=== PATIENT | female | born 1950 | race Caucasian/White ===

== ENCOUNTER 2018-11-09 10:51 | Inpatient (IN) | payer OTHER ==
[~2018-11-09] VITALS: Ht 160 cm; Wt 66.8 kg
[~2018-11-09 10:51] MED LIST: BEN25 PO; COL100 PO; IND10 PO; L20 PO; LAC30L PO; MAG PO; METHOCARBAMOL500 MG PO; PROT40I IV; THERAGRAN-M1 TA4 PO; THI100 PO; XIFAXAN550 M1 PO; ZOFI IV
[2018-11-09 10:52] VITALS: Ht 160 cm; Wt 66.8 kg
--- NOTE | 2018-11-09 11:11 | NUR ---
PT CAME TO THE ED TODAY WITH CO RASH TO R SIDE OF NECK AND HEADACHE X 4 DAYS. PT STATES PAIN STARTED THE SAME DAY. PER DR CHEUNG RASH IS SHINGLES. PT HAS HX OF STROKE IN 2009 WITH WEAKNESS TO R SIDE. PT STATES SHE USUALLY AMBULATES WITH WALKER. AT THIS TIME PT IS AWAKE AND ALERT. BREATHING EVEN AND UNLABORED. KAY AT BEDSIDE. WILL CONTINUE TO MONITOR.
[2018-11-09 11:42] LABS: BASOPHIL % 0.3 % (0-2); PLATELET COUNT 324 x10^3mcL (130-400); RED CELL DISTRIBUTION WIDTH 15.9 % (11.5-14.5)
[2018-11-09 11:47] LABS: microscopic required? NO
[2018-11-09 11:54] LABS: urine erythrocyte NEGATIVE (NEGATIVE)
[2018-11-09] MEDS ORDERED: VITD PO (12:09)
[2018-11-09] MEDS ORDERED: CAG500 PO (12:11)
[2018-11-09] MEDS ORDERED: MECLIZINE HYDRO25 M1 PO (12:12)
[2018-11-09] MEDS ORDERED: DAILY VITE1 TA2 PO (12:12)
[2018-11-09] MEDS ORDERED: FLUDROCORTISON0.1 MG PO (12:13)
[2018-11-09] MEDS ORDERED: DONEPEZIL HYDRO10 M2 PO (12:13)
[2018-11-09] MEDS ORDERED: NIFEDIPINE60 MG PO (12:14)
[2018-11-09] MEDS ORDERED: TOPROL XL25 MG PO (12:14)
[2018-11-09] MEDS ORDERED: CULTURELLE1 EACH PO (12:14)
[2018-11-09] MEDS ORDERED: DITROPAN XL5 MG PO (12:14)
[2018-11-09] MEDS ORDERED: PROTONIX40 MG PO (12:15)
[2018-11-09] MEDS ORDERED: NOVI SQ (12:15)
[2018-11-09] MEDS ORDERED: FORTEO250 MCG/ML SC (12:15)
[2018-11-09] MEDS ORDERED: MIRAPEX0.25 MG PO (12:16)
[2018-11-09] MEDS ORDERED: SIROLIMUS1 MG PO (12:16)
[2018-11-09] MEDS ORDERED: PROGRAF1 MG PO (12:16)
[2018-11-09] MEDS ORDERED: TRAMADOL HCL50 MG PO (12:17)
[2018-11-09] MEDS ORDERED: FULL CIRCLE BIOT5 MG PO (12:17)
[2018-11-09] MEDS ORDERED: ASPIR 8181 MG PO (12:17)
[2018-11-09] MEDS ORDERED: LANTUS SOLOS100 U/M1 SQ (12:17)
[2018-11-09 12:20] LABS: CARBON DIOXIDE 25.3 mmol/L (21-32); CREATININE SERUM 1.9 mg/dL (0.6-1.0); POTASSIUM SERUM 5.2 mmol/L (3.5-5.1)
[2018-11-09 12:25] LABS: ALBUMIN 3.6 g/dL (3.4-5.0); BILIRUBIN TOTAL 0.2 mg/dL (0.20-1.00); TOTAL PROTEIN, SERUM 7.8 g/dL (6.4-8.2)
--- NOTE | 2018-11-09 13:00 | NUR ---
REPORT GIVEN TO LYNDSEY ON MS FOR FURTHER CARE OF PT
[2018-11-09 13:23] LABS: CHOLESTEROL/HDL RATIO 6.8
[2018-11-09 13:31] LABS: T3 TOTAL 1.16 ng/mL
[2018-11-09 13:33] LABS: FREE T4 1.09 ng/dL (0.76-1.46); FREE THYROXINE INDEX 3.5 ug/dL (1.4-4.5); T4(THYROXINE) 10.2 ug/dL (4.7-13.3)
--- NOTE | 2018-11-09 13:37 | NUR ---
RECEIVED PT FROM ED VIA [facility], CAME IN DUE TO WEAKNESS. AAOX4. DENIES HEADACHE/DIZZINESS. NO SOB NOTED, LUNG SOUNDS CTA. DENIES CHEST PAIN/PRESSURE, SK=[id number]. DENIES ABDOMINAL DISCOMFORT. BOWEL SOUNDS ACTIVE. VOIDS. IV SITE ON THE RFA GAUGE 22 PATENT AND INTACT. W/ DRESSING ON THE RIGHT SIDE OF THE NECK, PT STATED NO NEED TO REMOVE THE DRESSING FOR ASSESSMENT ER HAD TOOK PICTURES ALREADY. C/O 10/10 HEADACHE AND RIGHT NECK PAIN, WILL MEDICATE PATIENT ORDERED. PT'S AT BEDSIDE. SIDE RAILS UPX2. CALL LIGHT ON REACH. NEEDS ARE ATTENDED. WILL CONT TO MONITOR.
--- NOTE | 2018-11-09 13:57 | NUR ---
MEDICATED W/ MORPHINE 2MG IVP FOR C/O 10/10 HEAD AND RIGHT NECK PAIN. WILL CONT TO MONITOR
--- NOTE | 2018-11-09 14:00 | NUR ---
ENDORSED TO PRIMARY NURSE JULIET FOR CONTINUITY OF CARE
[2018-11-09 14:08] VITALS: BP 133/94
[2018-11-09 17:58] VITALS: BP 161/101
--- NOTE | 2018-11-09 18:33 | NUR ---
PT RESTING IN BED, AOX4, RESP E/U ON RA. C/O OF MILD NECK AND BACK PAIN, RATED 5/10 BUT TOLERABLE, NO REQUEST FOR PAIN MEDS AT THIS TIME. COMFOR MEASURES IMPLEMENTED. IV TO RFA W/ NO SIGNS OF INFILTRATION, IVF INFUSING WELL. AIRBORNE PRECAUTIONS MAINTAINED. BED IN LOWEST POSITION AND CALL LIGHT WITHIN REACH. WILL ENDORSE TO ONCOMING NURSE.
--- NOTE | 2018-11-09 19:30 | NUR ---
RECIEVED PT IN NO ACUTE DISTRESS. AOX4. MED SURG. BREATHING E/U. RAISED AND REDDENED RASH, SHINGLES, TO R SIDE OF NECK WITH DRESSING CDI. NO DRAINAGE NOTED. BOWEL SOUNDS ACTIVE X 4. C/O DIARRHEA. DENIES PAIN. IV TO RFA, PATENT, NO REDNESS/SWELLING. AIR PRECAUTIONS MAINTAINED. BED IN LOWEST POSITON, 2 SIDE RAILS UP, CALL LIGHT IN REACH. INSTRUCTED TO CALL FOR ASSISTANCE.
[2018-11-09 21:05] VITALS: BP 175/111
--- NOTE | 2018-11-10 02:00 | NUR ---
RESTING IN BED WITH EYES CLOSED. BREATHING E/U. NO ACUTE DISTRESS NOTED. WILL CONTINUE TO MONITOR.
[2018-11-10 05:51] VITALS: BP 134/72
[2018-11-10 06:13] LABS: BASOPHIL % 0.1 % (0-2); PLATELET COUNT 317 x10^3mcL (130-400)
[2018-11-10 06:23] LABS: CREATININE SERUM 1.4 mg/dL (0.6-1.0); MAGNESIUM 1.8 mg/dL (1.8-2.4); POTASSIUM SERUM 5.2 mmol/L (3.5-5.1)
--- NOTE | 2018-11-10 06:30 | NUR ---
MEDICATED WITH DILAUDID IVP PER EMAR FOR 10/05 R NECK/HEAD PAIN WITH GOOD EFFECT. NO ACUTE DISTRESS NOTED. NO ACUTE CHANGES. WILL ENDORSE TO ONCOMING RN
[2018-11-10 06:45] LABS: RED CELL DISTRIBUTION WIDTH 15.9 % (11.5-14.5)
--- NOTE | 2018-11-10 07:32 | NUR ---
AWAKE, ALERT AND ORIENTED. NO RESP. DISTRESS. NO C/O PAIN OR DISCOMFORT AT THIS TIME. IVD INFUSING WELL AND SITE CLEAR. CALL LIGHT WITHIN REACH. WILL CONTINUE WITH PLAN OF CARE.
[2018-11-10 09:13] VITALS: BP 174/80
--- NOTE | 2018-11-10 11:33 | NUR ---
PT C/O PAIN TO RT SIDE OF THE NECK 12/06. MEDICATED WITH DILAUDID IVP PER ORDER.
--- NOTE | 2018-11-10 14:30 | NUR ---
RESTING IN BED, NO DISTRESS. NO C/O PAIN AT THIS TIME.
[2018-11-10 17:52] VITALS: BP 119/76
--- NOTE | 2018-11-10 18:30 | NUR ---
REMAINS IN NO DISTRESS. AWAKE AND ALERT. NO C/O PAIN OR DISCOMFORT AT THIS TIME. NO CHANGES IN VS. IVF INFUSING WELL AND SITE CLEAR. CALL LIGHT WITHIN REACH. WILL BE ENDORSED TO INCOMING SHIFT.
--- NOTE | 2018-11-10 18:58 | NUR ---
C/O HEADACHE 01/05. MEDICATED WITH DILAUDID PER ORDER.WILL BE ENDORSED TO INCOMING SHIFT.
--- NOTE | 2018-11-10 19:30 | NUR ---
RECIEVED PT IN NO ACUTE DISTRESS. AOX4. MED SURG. BREATHING E/U. RAISED AND REDDENED BLISTERS, SHINGLES, TO R SIDE OF NECK WITH DRESSING CDI. NO DRAINAGE NOTE. DENIES PAIN. IV TO R HAND, PATENT, NO REDNESS/SWELLING. AIR PRECAUTIONS MAINTAINED. BED IN LOWEST POSITON, 2 SIDE RAILS UP, CALL LIGHT IN REACH. INSTRUCTED TO CALL FOR ASSISTANCE.
[2018-11-10 20:02] VITALS: BP 140/69
--- NOTE | 2018-11-11 01:05 | NUR ---
RESTING IN BED WITH EYES CLOSED. BREATHING E/U. NO ACUTE DISTRESS NOTED. WILL CONTINUE TO MONITOR.
[2018-11-11 06:13] VITALS: BP 155/78
[2018-11-11 06:39] LABS: BASOPHIL % 0.7 % (0-2); PLATELET COUNT 287 x10^3mcL (130-400)
[2018-11-11 06:48] LABS: RED CELL DISTRIBUTION WIDTH 16.3 % (11.5-14.5)
--- NOTE | 2018-11-11 06:48 | NUR ---
NO ACUTE DISTRESS NOTED. NO ACUTE CHANGES. WILL ENDORSE TO ONCOMING RN.
[2018-11-11 07:00] LABS: CALCIUM 8.2 mg/dL (8.5-10.1); CARBON DIOXIDE 21.3 mmol/L (21-32); CREATININE SERUM 1.1 mg/dL (0.6-1.0); MAGNESIUM 1.7 mg/dL (1.8-2.4); POTASSIUM SERUM 4.5 mmol/L (3.5-5.1)
[2018-11-11 08:45] VITALS: BP 145/77
--- NOTE | 2018-11-11 10:27 | NUR ---
AT 0705 - RECEIVED PATIENT FROM NIGHT NURSE. SLEEPING. RESPIRATIONS REGULAR. IV INFUSING NS AT 100 ML/HR. ON AIRBORNE ISOLATION FOR SHINGLES. AT 0805 - AWAKE, ALERT AND ORIENTED. C/O SEVERE PAIN AT SHINGLES SITE (R CERVICAL DERMATOME). MEDICATED WITH IV DILAUDID PER EMAR. AT 0850 - IV IN L HAND. INFILTRATED. IV CATHETER REMOVED INTACT. IV RESITED IN R WIST AND IV INFUSION OF NS RESUMED AT 100 ML/HR.
[2018-11-11] MEDS ORDERED: ACYCLOVIR400 MG IV (12:01)
[2018-11-11] MEDS ORDERED: ACYCLOVIR SODI500 MG IV (12:15)
[2018-11-11 12:57] VITALS: BP 145/77
--- NOTE | 2018-11-11 13:43 | NUR ---
RECEIVED ORDERS FOR PATIENT TO DISCHARGE TO [facility] ([facility]) FOR CONTINUATION OF IV ANTIBIOTICS. [facility] IS [facility]RANGING MEDICAL TRANSPORT FOR PATIENT. SPOKE WITH PATIENT, SHE IS AWARE OF THE PLAN. [facility] WITH PICK-UP TIME OF 1500.
--- NOTE | 2018-11-11 15:21 | NUR ---
AT 1430 - SHINGLES AREA PHOTO DOCUMENTED. COVERED WITH DRY DRESSING AND NETTING FOR COMFORT. IV SALINE LOCKED. PATIENT SIGNED TRANSFER ACKNOWLEDGEMENT FORM. PREPARED FOR DISCHARGE. AT 1450 - COPIES OF PRINTED DISCHARGE INSTRUCTIONS GIVEN AND EXPLAINED TO PATIENT. AT 1515 - REPORT GIVEN TO EMEKA AT [facility]. DISCHARGED TO [facility] WITH [facility] IN WHEELCHAIR. PATIENT WORE MASK AT TRANSFER TIME.
--- NOTE | 2018-11-11 15:28 | NUR ---
PATIENT DISCHARGED WITH IV SALINE LOCK FOR CONTINUATION OF IV ACYCLOVIR.
== END 2018-11-11 15:13 | DRG 865 ==
LOC: ED 10:51 → MU 12:41
PROVIDERS: Emergency Medicine; ADMIT Internal Medicine
DX: B02.8 Zoster with other complications (principal); N17.0 Acute kidney failure with tubular necrosis; Z94.4 Liver transplant status; I10 Essential (primary) hypertension; E11.9 Type 2 diabetes mellitus without complications; Z86.73 Personal history of transient ischemic attack (TIA), and cerebral infarction without residual deficits; Z79.4 Long term (current) use of insulin; Z79.82 Long term (current) use of aspirin; Z79.899 Other long term (current) drug therapy
CPT/HCPCS: 82962; 84439; 97116-GP; G0378; J0133; J1170; J1200; J1815; J2270; J3010; J7030; J7507; Q0092

== ENCOUNTER 2018-11-24 10:09 | Inpatient (IN) | payer OTHER ==
[~2018-11-24] VITALS: Ht 160 cm; Wt 66.3 kg
[~2018-11-24 10:09] MED LIST changes: +ACYCLOVIR SODI500 MG IV; +ACYCLOVIR400 MG IV; +ASPIR 8181 MG PO; +CAG500 PO; +CULTURELLE1 EACH PO; +DAILY VITE1 TA2 PO; +DITROPAN XL5 MG PO; +DONEPEZIL HYDRO10 M2 PO; +FLUDROCORTISON0.1 MG PO; +FORTEO250 MCG/ML SC; +FULL CIRCLE BIOT5 MG PO; +LANTUS SOLOS100 U/M1 SQ; +MECLIZINE HYDRO25 M1 PO; +MIRAPEX0.25 MG PO; +NIFEDIPINE60 MG PO; +NOVI SQ; +PROGRAF1 MG PO; +PROTONIX40 MG PO; +SIROLIMUS1 MG PO; +TOPROL XL25 MG PO; +TRAMADOL HCL50 MG PO; +VITD PO
[2018-11-24 10:17] VITALS: Ht 160 cm; Wt 66.3 kg
--- NOTE | 2018-11-24 10:24 | NUR ---
PT WAS B/B AMBULANCE FROM HOME. ARIELA S/P MICHEL SCHULTE. A/OX3.
[2018-11-24 11:21] LABS: PLATELET COUNT 387 x10^3mcL (130-400)
[2018-11-24 11:31] LABS: CALCIUM 9.1 mg/dL (8.5-10.1); CARBON DIOXIDE 23.1 mmol/L (21-32); CREATININE SERUM 1.5 mg/dL (0.6-1.0); POTASSIUM SERUM 4.7 mmol/L (3.5-5.1)
[2018-11-24 11:35] LABS: ALBUMIN 3.5 g/dL (3.4-5.0); BILIRUBIN TOTAL 0.39 mg/dL (0.20-1.00); TOTAL PROTEIN, SERUM 7.7 g/dL (6.4-8.2)
--- NOTE | 2018-11-24 11:43 | NUR ---
TRIED IM MORPHINE, NO WORK. IV SL STARTED @RH. NS0.9% STARTED. KETAMINE IVPB STARTED TO TRY. PT IS STILL HAVE PAIN NOW.
[2018-11-24 11:49] LABS: RED CELL DISTRIBUTION WIDTH 15.8 % (11.5-14.5)
--- NOTE | 2018-11-24 12:08 | NUR ---
PAIN GETTING LITTLE BETTER AFTER KETAMINE INFUSED DONE. PHYNTANYL WAS GIVEN IVP
--- NOTE | 2018-11-24 12:33 | NUR ---
PT COMPLAINING CHEST PAIN. DR. ONEILL WAS NOTIFIED. EKG WAS ORDERED.
--- NOTE | 2018-11-24 13:25 | NUR ---
MEDICATED ORDERED. PT STATES PAIN STILL 11/05. NO SIGNS OF RESP DISTRESS. RESIDENT AT BEDSIDE.
--- NOTE | 2018-11-24 14:04 | NUR ---
ADMITED TO TELE [id number]. REPORT WAS CALLED AND GIVEN TO
--- NOTE | 2018-11-24 14:39 | NUR ---
RECEIVED PT FROM ED [facility]IA [facility], CAME IN DUE TO PAIN ON THE NECK AREA WHERE HER PREVIOUS SHINGLES WERE. PT IS AAOX4. DENIES HEADACHE. STATED THAT SHE HAS MILD DIZZINESS. ABLE TO FOLLOW COMMANDS. NO SOB NOTED, LUNG SOUNDS CTA. DENIES CHEST PAIN/PRESSURE. DENIES ABDOMINAL DISCOMFORT. LAST BM WAS YESTERDAY. VOIDS. 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 C/O 7/10 THROBBING AND ACHING PAIN ON THE NECK, PT STATED THAT SHE HAD MODERATE RELIEF OF PAIN SINCE SHE CAME IN ER. SIDE RAILS UPX2. CALL LIGHT ON REACH. PT'S AT BEDSIDE. WILL CONT TO MONITOR
--- NOTE | 2018-11-24 14:50 | NUR ---
DR. CORLEY IS TO PAGEGATED TO MADE AWARE THAT PT NEEDS A DIET ORDER. WAITING FOR ORDERS
[2018-11-24 14:53] VITALS: BP 145/77
--- NOTE | 2018-11-24 15:20 | NUR ---
ENDORSED TO PRIMARY NURSE NICCI FOR CONTINUITY OF CARE
--- NOTE | 2018-11-24 15:40 | NUR ---
RESUMED CARE OF THIS PT FROM GE[facility]. PT IN NO ACUTE DISTRESS. AWAKE AND ALERT. SITTING IN BED EATING LUNCH. AT BEDSIDE. NO C/O PAIN AT THIS TIME. WILL CONTINUE WITH PLAN OF CARE.
[2018-11-24 17:11] VITALS: BP 130/68
--- NOTE | 2018-11-24 18:24 | NUR ---
REMAINS IN NO DISTRESS. DOSING ON AND OFF. NO C/O PAIN AT THIS TIME. CALL LIGHT WITHIN REACH. WILL BE ENDORSED TO INCOMING SHIFT.
--- NOTE | 2018-11-24 19:05 | NUR ---
RECEIVED PT FROM PREVIOUS SHIFT NURSE. PT AOX4. DENIES TITUS/DIZZINESS. MED SURG PT, DENIES CP/PRESSURE. DENIES SOB/DIFFICULTY BREATHING, ON RA. SCABS/DISCOLORATION ON NECK AND R. CHEST AND SHOULDER. IV TO R. HAND, INTACT AND PATENT. BED IN LOWEST POSITION. CALL LIGHT WITHIN REACH. WILL CONTINUE TO MONITOR.
[2018-11-24 20:07] VITALS: BP 133/76
--- NOTE | 2018-11-24 20:55 | NUR ---
PT REQUESTING MEDICATION FOR ITCHING AND PAIN. OFFERED NORCO, PT REFUSED NORCO. CRYING AND SCREAMING. MEDICATED WITH MORPHINE IVP.
[2018-11-24 21:00] LABS: CHOLESTEROL 294 mg/dL (<200); CHOLESTEROL/HDL RATIO 9.2; HDL CHOLESTEROL 32 mg/dL (40-60); TRIGLYCERIDES 455 mg/dL (<150)
--- NOTE | 2018-11-24 21:40 | NUR ---
PT ACCUCHECK 454 AND 447 UPON RECHECK. PT GIVEN 21 UNITS OF HUMULIN R PER ORDERS. DR. VAZQUEZ NOTIFIED.
--- NOTE | 2018-11-24 21:45 | NUR ---
PT CONTINUES TO CRY, PAGED DR. VAZQUEZ FOR FURTHER ORDERS. AWAITING CALL BACK.
--- NOTE | 2018-11-24 21:45 | NUR ---
PT REQUESTING MEDICATION FOR ITCHING AND PAIN. OFFERED NORCO, PT REFUSED NORCO. CRYING AND SCREAMING. MEDICATED WITH MORPHINE IVP.
--- NOTE | 2018-11-24 22:20 | NUR ---
PT OFFERED ULTRAM PO, PT REFUSING ULTRAM, REQUESTING DILAUDID IVP. DR. VAZQUEZ NOTIFIED.
--- NOTE | 2018-11-24 22:51 | NUR ---
DR. VAZQUEZ AT BEDSIDE, PT GIVEN ULTRAM AND ATIVAN IVP. WILL CONTINUE TO MONITOR.
--- NOTE | 2018-11-25 00:08 | NUR ---
PT SLEEPING IN BED. RR EVEN AND UNLABORED. IN NO ACUTE DISTRESS. CALL LIGHT WITHIN REACH. BED IN LOWEST POSITION. WILL CONTINUE TO MONITOR.
--- NOTE | 2018-11-25 02:20 | NUR ---
PT RESTING IN BED. RR EVEN AND UNLABORED. IN NO ACUTE DISTRESS. CALL LIGHT WITHIN REACH. WILL CONTINUE TO MONITOR.
--- NOTE | 2018-11-25 05:46 | NUR ---
PT ACCUCHECK 59 AND 56 UPON RECHECK. D50 IVP [address]MIN[address] PER [address]. HOLDEN. PT AWAKE, ALERT. REFUSED SNACK. WILL RECHECK.
[2018-11-25 06:06] VITALS: BP 130/70
[2018-11-25 07:17] LABS: BASOPHIL % 0.2 % (0-2); PLATELET COUNT 395 x10^3mcL (130-400)
--- NOTE | 2018-11-25 07:23 | NUR ---
RECEIVED REPORT FROM YOLA JONES. PATIENT SLEEPING COMFORTABLY IN BED WITH ALL NEEDS MET. SALINE LOCK TO LFA IS PATENT AND INTACT. NO REDNESS OR PAIN. PT ON ROOM AIR. NO C/O SOB AND NO DISTRESS NOTED. ALL QUESTIONS AND CONCERNS ADDRESSED.
[2018-11-25 07:44] LABS: RED CELL DISTRIBUTION WIDTH 15.9 % (11.5-14.5)
[2018-11-25 07:46] LABS: CALCIUM 8.6 mg/dL (8.5-10.1); CARBON DIOXIDE 26.4 mmol/L (21-32); CREATININE SERUM 1.8 mg/dL (0.6-1.0); POTASSIUM SERUM 4.1 mmol/L (3.5-5.1)
--- NOTE | 2018-11-25 07:58 | NUR ---
RECEIVED CALL FROM LAB ABOUT PT GLUCOSE 49. WENT IN TO CHECK PATIENT GLUCOSE. PATIENT SITTING COMFORTABLY IN BED EATING BREAKFAST. GLUCOSE 182. NO ACTION REQUIRED.
[2018-11-25 08:34] VITALS: BP 141/110
--- NOTE | 2018-11-25 11:00 | NUR ---
ROUNDS: DR RUELAS, RESIDENTS, PRIMARY RN, AND PUTTYING AND CALKING SUPERVISOR AT BEDSIDE. DISCUSSED AND ASSESS RESIDUAL RASH AND SCALING WITH CONTINUED PAIN. POSSIBLE DISCHARGE TODAY WITH PAIN MEDICATION.
--- NOTE | 2018-11-25 14:51 | NUR ---
FOLLOW UP CXR TAKEN NOW. PATIENT'S ALSO BROUGHT IN HOME MED FOR VERIFICATION.
[2018-11-25 16:37] VITALS: BP 121/78
--- NOTE | 2018-11-25 19:15 | NUR ---
REPORT RECEIVED FROM DAY SHIFT RN. PATIENT WAS SEEN AND IS RESTING COMFORTABLY IN BED. NO DISTRESS NOTED. BREATHING EVEN AND UNLABORED ON ROOM AIR. NO SOB OR RESP DISTRESS NOTED. NO C/O PAIN. DENIES CHEST PAIN/PRESSURE. IV TO THE LFA INFUSING WELL. PATENT AND INTACT. NO REDNESS OR SWELLING NOTED. SCABS AND DISCOLORATION NOTED TO THE BACK OF HEAD, NECK, RIGTH CHEST, AND SHOULDER. CALM AND COOPERATIVE WITH CARE. COMFORT AND SAFETY MEASURES IN PLACE. CALL LIGHT IS WITHIN REACH. BED IS LOCKED AND IN THE LOWEST POSITION. SIDE RAILS UP X2. CALL LIGHT IS WITHIN REACH. WILL CONTINUE TO MONITOR.
--- NOTE | 2018-11-25 19:31 | NUR ---
REPORT GIVEN TO CHIQUITA JONES. PATIENT RESTING COMFORTABLY IN BED WITH ALL NEEDS MET. NEW IV TO LFA AND FLUIDS RESUMED AT THIS TIME. ALL QUESTIONS AND CONCERNS ADDRESSED. ALL CARES ENDORSED.
--- NOTE | 2018-11-25 20:42 | NUR ---
PATIENT STATES RIGHT SIDE OF NECK, SHOULDER, AND CHEST IS BURNING WHERE DISCOLORATION OF PREVIOUS SHINGLES WERE. PAGE GATED DR VAZQUEZ AND MADE HIM AWARE. NO NEW ORDERS AT THIS TIME. WILL CONTINUE TO MONITOR PATIENT.
--- NOTE | 2018-11-25 20:49 | NUR ---
C/O 10/ HEADACHE. PRN MORPHINE WAS ADMINISTERED PRESCRIBED. EDUCATED PATIENT ON POSS SIDE EFFECTS. VERBALIZED UNDERSTANDING. NO DISTRESS NOTED. WILL CONTINUE TO MONITOR AND REASSESS PAIN LEVEL. DR VAZQUEZ SAID ALANA RAY HELP WITH BURNING. RELAYED INFORMATION TO PATIENT.
[2018-11-25 21:06] VITALS: BP 138/96
--- NOTE | 2018-11-25 21:29 | NUR ---
PATIENT REPORTS THAT SHE ONLY TAKES 20U OF LANTUS AT [facility]. ORDERED IS 30U OF LANTUS. PAGE GATED DR VAZQUEZ AND MADE HIM AWARE. AWAITING NEW ORDERS. NO NEW ORDERS AT THIS TIME.
--- NOTE | 2018-11-25 21:42 | NUR ---
BS 208. ADMINISTERED 6UNITS OF REGULAR INSULIN PER RISS AND 20 UNITS OF LANTUS PER ORDER. EDUCATED PATIENT TO REPORT S/S OF HYPOGLYCEMIA. APPLIED ICE PACK TO RIGTH SIDE OF NECK. PATIENT STATES IT'S HELPING WITH THE BURNING. NO DISTRESS NOTED. BREATHING EVEN AND UNLABORED. CALL LIGHT IS WITHIN REACH. WILL CONTINUE TO MONITOR.
--- NOTE | 2018-11-26 00:40 | NUR ---
ASSISTED PATIENT TO BATHROOM AND BACK TO BED. PATIENT MADE COMFORTABLY IN BED. COLLECTED URINE. APPLIED ICE PACK TO NECK FOR BURNING. PATIENT STATES BURNING IMPROVED. NO DISTRESS NOTED. NO C/O PAIN. CALL LIGHT IS WITHIN REACH. WILL CONTINUE TO MONITOR.
--- NOTE | 2018-11-26 01:45 | NUR ---
RESTING IN BED WITH EYES CLOSED. NO DISTRESS NOTED. BREATHING EVEN AND UNLABORED ON ROOM AIR. NO S/S OF PAIN NOTED. IVF INFUSING WELL. PATENT AND INTACT. SAFETY MEASURES IN PLACE. CALL LIGHT IS WITHIN REACH. WILL CONTINUE TO MONITOR.
[2018-11-26 02:58] LABS: microscopic required? NO
[2018-11-26 03:02] LABS: urine erythrocyte NEGATIVE (NEGATIVE)
--- NOTE | 2018-11-26 04:48 | NUR ---
C/O 10/10 PULLING PAIN IN HEAD. PATIENT STATES "IT FEELS LIKE SOMEONE IS PULLING MY HAIR". PRN MORPHINE ADMINISTERED PRESCRIBED. NO DISTRESS NOTED. EDUCATED PATIENT ON MED. SAFETY MEASURES IN PLACE. CALL LIGHT IS WITHIN REACH. WILL CONTINUE TO MONITOR AND REASSES PAIN LEVEL.
[2018-11-26 05:38] VITALS: BP 112/55
--- NOTE | 2018-11-26 06:14 | NUR ---
PATIENT RESTED IN INTERVALS THROUGHOUT THE NIGHT. NO ACUTE CHANGES NOTED. NO DISTRESS NOTED. BREATHING EVEN AND UNLABORED ON ROOM AIR. NO SOB OR RESP DISTRESS NOTED. DENIES CHEST PAIN. C/O "PULLING" HEADACHE PAIN X2. MEDICATED WITH PRN MORPHINE X2 WITH MILD RELIEF. C/O BURNING TO RIGHT SIDE OF NECK. APPLIED ICE PACKS THROUGHOUT THE NIGHT W/ MILD RELIEF. PAGE GATED DR VAZQUEZ; PATIENT IS REQUESTING OINTMENT TO HELP WITH BURNING. AWAITING ORDERS. IV TO THE LFA INFUSING WELL. PATENT AND INTACT. NO REDNESS OR SWELLING NOTED. SAFETY MEASURES IN PLACE. CALL LIGHT IS WITHIN REACH. WILL ENDORSE CARE TO DAY SHIFT RN.
--- NOTE | 2018-11-26 08:08 | NUR ---
AAO TIMES 4. AIRBORNE ISOLATION FOR SHINGLES. MED SURG PATIENT. LUNGS CTA. NO SOB. O2 SAT ON RA 96%. BS'S ACTIVE TIMES 4. GAITAN WITH GENERALIZED WEAKNESS. IV SITE CDI. NO C/O PAIN. C/O ITCHING, WILL NOTIFY MD. DRIED SCABS TO BACK OF SCALP AREA, DISCOLORATION TO RIGHT NECK/SHOULDER, RIGHT CHEST AND RIGHT BACK FROM SHINGLES SCARRING THAT HAS HEALED UP.
[2018-11-26 08:09] VITALS: BP 141/69
[2018-11-26 10:16] LABS: BASOPHIL % 0.2 % (0-2); PLATELET COUNT 296 x10^3mcL (130-400)
[2018-11-26 10:27] LABS: RED CELL DISTRIBUTION WIDTH 16.1 % (11.5-14.5)
[2018-11-26 10:33] LABS: CALCIUM 7.7 mg/dL (8.5-10.1); CARBON DIOXIDE 23.9 mmol/L (21-32); CREATININE SERUM 1.2 mg/dL (0.6-1.0); POTASSIUM SERUM 4.4 mmol/L (3.5-5.1)
[2018-11-26 12:56] VITALS: BP 112/55
--- NOTE | 2018-11-26 13:30 | NUR ---
DYLAN DALY CAME AND TALKED TO HER, AND TOLD HER SHE WOULD LIKE HER TO STAY ANOTHER DAY SINCE HER PAIN ISNT UNDER CONCTROL, BUT SHE SAYS SHE WANTS TO GO HOME ANYWAYS. SHE SAYS SHE HAS PAIN MEDICATION AT HOME. I GAVE HER DISCHARGE INSTRUCTIONS, NO PRESCRIPTION. I REMOVED THE SALINE LOCK ANGIO INTACT.
== END 2018-11-26 13:35 | disposition home or self-care (01) | DRG 73 ==
LOC: ED 10:09 → MU 13:09 → DU 13:09 → MU 15:08
PROVIDERS: Specialist; ADMIT Internal Medicine
DX: B02.29 Other postherpetic nervous system involvement (principal); N17.0 Acute kidney failure with tubular necrosis; Z94.4 Liver transplant status; E87.1 Hypo-osmolality and hyponatremia; I12.9 Hypertensive chronic kidney disease with stage 1 through stage 4 chronic kidney disease, or unspecified chronic kidney disease; E11.65 Type 2 diabetes mellitus with hyperglycemia; E11.22 Type 2 diabetes mellitus with diabetic chronic kidney disease; N18.9 Chronic kidney disease, unspecified; K21.9 Gastro-esophageal reflux disease without esophagitis; N32.81 Overactive bladder; E03.9 Hypothyroidism, unspecified; Z68.24 Body mass index [BMI] 24.0-24.9, adult; Z79.899 Other long term (current) drug therapy; Z79.4 Long term (current) use of insulin; Z79.82 Long term (current) use of aspirin; Z86.73 Personal history of transient ischemic attack (TIA), and cerebral infarction without residual deficits
CPT/HCPCS: 82962; G0378; J1200; J1815; J1885; J2060; J2270; J2405; J3010; J3490; J7030; J8597; Q0092; Q0162